=== PATIENT | female | born 1935 | race Hispanic/Latino ===

== ENCOUNTER 2019-11-21 18:33 | Emergency (ER) | payer OTHER, MEDICAID ==
[2019-11-21] MEDS ORDERED: PREDNISONE 20 MG TABLET ONE (18:54)
== END 2019-11-21 19:52 | disposition home or self-care (01) ==
LOC: EDBD 18:33 → EDH 18:33
DX: T63.441A Toxic effect of venom of bees, accidental (unintentional), initial encounter (principal); E11.9 Type 2 diabetes mellitus without complications; I10 Essential (primary) hypertension; Z88.6 Allergy status to analgesic agent; Y92.89 Other specified places as the place of occurrence of the external cause